=== PATIENT | male | born 1980 | race African-American/Black ===

== ENCOUNTER 2022-01-11 05:40 | Emergency (ER) | payer SELFPAY ==
[~2022-01-11] VITALS: Ht 170.2 cm; Wt 86.0 kg
[2022-01-11] MEDS ORDERED: ACETAMINOPHEN 325MG TABLET PO ONE (08:00)
[2022-01-11] MEDS ORDERED: IBUPROFEN 400MG TABLET PO ONE (08:00)
[2022-01-11] MEDS ORDERED: TETANUS, DIPHTHERIA, PERTUSSIS VAC/PF 0.5ML (>10YR OLD) IM ONE (09:00)
[2022-01-11] MEDS ORDERED: ACET-2708 MT (13:00)
[2022-01-11] MEDS ORDERED: IBUP-2028 MT (13:00)
[2022-01-11 13:22] VITALS: BP 126/65
== END 2022-01-11 13:33 | disposition home or self-care (01) ==
LOC: ER 05:40
DX: S62.394A Other fracture of fourth metacarpal bone, right hand, initial encounter for closed fracture (principal); V43.52XA Car driver injured in collision with other type car in traffic accident, initial encounter; Y93.89 Activity, other specified; Y92.488 Other paved roadways as the place of occurrence of the external cause
CPT/HCPCS: 29125; 73130; 73562; 90471; 90715; 99284